=== PATIENT | male | born 1985 | race Two or more races ===

== ENCOUNTER 2020-03-01 14:14 | Emergency (ER) | payer MEDICAID, OTHER ==
[~2020-03-01] VITALS: Ht 180.3 cm; Wt 97.5 kg
[2020-03-01 14:28] VITALS: BP 126/92
[2020-03-01] MEDS ORDERED: ACETAMINOPHEN 325 MG TAB PO ONE ×3 (15:29→15:30)
== END 2020-03-01 16:46 | disposition home or self-care (01) ==
LOC: ER 14:14
DX: B34.9 Viral infection, unspecified (principal); Z20.828 Contact with and (suspected) exposure to other viral communicable diseases
CPT/HCPCS: 71045; 87070; 87804; 87880; 99284; C9803; U0003

== ENCOUNTER 2020-06-22 09:26 | Emergency (ER) | payer MEDICAID, OTHER ==
[~2020-06-22] VITALS: Ht 180.3 cm; Wt 97.5 kg
[2020-06-22 10:47] VITALS: BP 133/79
== END 2020-06-22 12:02 | disposition home or self-care (01) ==
LOC: ER 09:26
DX: M79.672 Pain in left foot (principal); F17.210 Nicotine dependence, cigarettes, uncomplicated; Z88.6 Allergy status to analgesic agent; Z88.8 Allergy status to other drugs, medicaments and biological substances; W22.8XXA Striking against or struck by other objects, initial encounter; Y93.89 Activity, other specified; Y92.89 Other specified places as the place of occurrence of the external cause; Y99.8 Other external cause status
CPT/HCPCS: 73630

== ENCOUNTER 2020-07-14 08:33 | Emergency (ER) | payer OTHER ==
[~2020-07-14] VITALS: Ht 180.3 cm; Wt 97.5 kg
[2020-07-14 11:54] VITALS: BP 138/95
[2020-07-14] MEDS ORDERED: methylPREDNISolone SOD SUCC 125 MG/2 ML VL IM ONE (12:30)
== END 2020-07-14 13:19 | disposition home or self-care (01) ==
LOC: ER 08:33
DX: T63.461A Toxic effect of venom of wasps, accidental (unintentional), initial encounter (principal); F17.210 Nicotine dependence, cigarettes, uncomplicated; Z88.5 Allergy status to narcotic agent; Z88.6 Allergy status to analgesic agent; Z88.8 Allergy status to other drugs, medicaments and biological substances; Y92.89 Other specified places as the place of occurrence of the external cause
CPT/HCPCS: 96372; 99283; J2930

== ENCOUNTER 2024-07-09 14:38 | Emergency (ER) | payer MEDICAID, OTHER ==
[~2024-07-09] VITALS: Ht 180.3 cm; Wt 100.0 kg
[2024-07-09 15:09] LABS: Basophils # (auto) 0.1 10 ^3/uL (0-0.2); Basophils % (auto) 0.9 % (0.0-2.0); Eosinophils # (auto) 0.1 10 ^3/uL (0-0.8); Eosinophils % (auto) 1.3 % (0.0-7.0); Hematocrit 52.4 % (41.0-53.0); Lymphocytes # (auto) 2.2 10 ^3/uL (0.4-5.4); Lymphocytes % (auto) 26.1 % (10.0-50.0); Mean Corpuscular Hemoglobin 32.5 pg (28.0-32.0); Mean Corpuscular Hgb Conc. 34.3 g/dL (32.0-36.0); Mean Corpuscular Volume 94.7 fL (80.0-100.0); Monocytes # (auto) 0.5 10 ^3/uL (0-1.3); Monocytes % (auto) 6.4 % (0.0-12.0); Neutrophils # (auto) 5.5 10 ^3/uL (1.6-8.6); Neutrophils % (auto) 65.3 % (37.0-80.0); Platelet Count (auto) 230 10^3/uL (140-450); Red Blood Cells 5.54 10^6/uL (4.5-5.90); Red Cell Distribution Width 13.6 % (11.8-14.3); White Blood Cell 8.4 10^3/uL (4.4-10.8)
--- NOTE | 2024-07-09 15:14 | DVH ---
CHEST RADIOGRAPH Indication:CP Technique: Single frontal view of the chest was obtained COMPARISON: CHEST XRAY 1 VIEW on DOS: 03/01/20 FINDINGS: Lines and Tubes: None Lungs: Clear Pleura: No effusion. No pneumothorax. Cardiomediastinal contours: Unremarkable Bones: Unremarkable IMPRESSION: No acute disease.
[2024-07-09 15:27] LABS: INR 1.05 (0.9-1.15); Partial Thromboplastin Time 27.2 SEC (24.5-34.5); Prothrombin Time 11.1 sec (9.3-11.8)
[2024-07-09 15:31] LABS: Alanine Aminotransferase 41 U/L (7-40); Albumin 4.9 g/dL (3.2-4.8); Alkaline Phosphatase 48 U/L (46-116); Anion Gap 3 (5-15); Aspartate Aminotransferase 46 U/L (13-40); BUN/Creatinine Ratio 12.5 (10.0-20.0); Blood Urea Nitrogen 12 mg/dL (9-23); Calcium 10.3 mg/dL (8.7-10.4); Carbon Dioxide 32 mmol/L (20-31); Chloride 105 mmol/L (98-107); Glucose 141 mg/dL (74-106); Magnesium 2.1 mg/dL (1.6-2.6); Potassium 3.9 mmol/L (3.5-5.1); Sodium 140 mmol/L (136-145)
[2024-07-09 15:32] LABS: Bilirubin, Total 0.8 mg/dL (0.2-1.0); Total Protein 7.8 g/dL (5.7-8.2)
--- NOTE | 2024-07-09 15:32 | ED.PDOC ---
HPI Comments HPI: HPI: Poor Historian. 38-year-old male presents to the emergency department for episode that started at 1:30 p.m. today of left-sided chest pain radiating to the left upper extremity as numbness and tingling sensation. Patient had associated shortness of breath and dizziness and palpitations with it. Patient states something similar happened five years ago when he was admitted to the hospital at [facility] and subsequently had a heart catheterization which was unremarkable. Patient continues to use tobacco. Patient has been recently on amlodipine for blood pressure. Vitals: Temp:98.0 F Heart rate: 107 RR: 16 BP:119/85 02 sat: 98% on room air PMH: HTN tobacco abuse PSH: denies social history: endorses tobacco use, endorses ETOH use, denies drug use medications: amlodipine allergies: tylenol, hydrocodone, iodine, oxycodone REVIEW OF SYSTEMS: CONSTITUTIONAL: Denies acute: fever, diaphoresis, chills, generalized weakness. HEAD: Denies acute: headache, photophobia Eyes: Denies acute: Double vision, vision loss, eye pain, eye discharge. EARS: Denies acute: tinnitus, hearing loss, ear discharge, ear pain, THROAT: Denies acute: sore throat, swelling, difficulty swallowing , pain with swallowing, change in voice. NECK: Denies acute: neck pain, neck swelling, stiff neck. HEART: Denies acute : LUNGS: Denies acute: wheezing, cough, hemoptysis ABDOMEN: Denies acute: abdominal pain, Nausea, Vomiting, diarrhea, melena , hematemesis, hematochezia SKIN: Denies acute: rash, redness, lesions, itchiness. EXTREMITIES: Denies acute: calf pain, weakness, denies pain in extremity. Denies acute: Low back pain. Neuro: Denies acute: focal neurological deficit, motor or sensory focal neurological deficit, tremors, seizure like activity, confusion, change in mental status, loss of bowel or bladder function, cauda equina like symptoms. : Denies acute: dysuria, hematuria, flank pain, increase in urinary frequency. PSYCH: Denies acute: hallucination, suicidal ideation, homicidal ideation. PHYSICAL EXAM: General: no acute distress, awake and alert. Head: normocephalic, atraumatic. Neck: supple, trachea is midline, no swelling. Throat: Normal phonation. Eyes:, no erythema, no purulent discharge, no proptosis, no icterus. Heart: regular rate, regular rhythm, no significant murmur appreciated. Lungs: no apparent respiratory distress, Able to speak in full sentences. No wheezing, no rhonchi, no crackles. No stridors Clear to auscultation bilaterally. Abdomen: non tender to palpation, non distended, soft, no guarding, no rebound, + bowel sounds. Neuro: Awake, Alert, oriented to name, self, situation, follows commands GCS=15. Speech is normal. Skin: no petechia, no purpura, no cyanosis, non-pale, not jaundice. Lower extremities: --no - Pitting edema no deformity, no focal swelling, no calf TTP. Makes eye contact. moves all four extremities. Face: no apparent facial droop. Chief Complaint: Chest Pain Time Seen by MD: 15:34 Primary Care Provider: UNKNOWN Reviewed Notes: Medications, Allergies Allergies: Coded Allergies: Acetaminophen (Verified Allergy, Unknown, 03/01/20) Hydrocodone (Verified Allergy, Unknown, 03/01/20) Iodine (Verified Allergy, Unknown, 03/01/20) Oxycodone (Verified Allergy, Unknown, 03/01/20) Information Source: Patient Mode of Arrival: Ambulatory Brought in by: self Past Medical History PAST MEDICAL HISTORY: HTN Surgical History: Denies all surgeries Family History Family History: Reviewed,noncontributory to illness Social History Smoker: Cigarettes Alcohol: Denies ETOH Use Drugs: Denies Drug Use Lives In: Home Was a procedure done? Was a procedure done?: No CP Differential Dx Differential Diagnosis: N/A Differential Diagnosis: Other (Ddx include but not limitied to gastritis, musculoskeletal pain, radiculopathy, atypical chest pain, dissection, aneurysm, ACS, unstable angina, hiatal hernia, GERD, anxiety, costochondritis, PE, pneumothroax, neoplasm, cardiac ischemia, drug abuse, anemia.) X-Ray, Labs, Meds, VS Vital Signs Date Time Temp Pulse Resp B/P (MAP) Pulse Ox O2 Delivery O2 Flow Rate FiO2 07/09/24 17:45 93 07/09/24 17:23 115/64 07/09/24 16:24 98.5 101 20 121/76 (91) 97 98.5 07/09/24 16:24 101 20 97 Room Air 07/09/24 16:23 121/76 07/09/24 16:06 94 07/09/24 15:04 98.0 107 16 119/85 (96) 98 07/09/24 14:40 108 Lab Test 07/09/24 17:38 07/09/24 15:44 07/09/24 14:44 Range/Units Troponin I High Sensitivity < 3 L < 3 L < 3 L </=54 ng/L White Blood Count 8.4 4.4-10.8 10^3/uL Red Blood Count 5.54 4.5-5.90 10^6/uL Hemoglobin 18.0 H 13.5-17.5 g/dL Hematocrit 52.4 41.0-53.0 % Mean Corpuscular Volume 94.7 80.0-100.0 fL Mean Corpuscular Hemoglobin 32.5 H 28.0-32.0 pg Mean Corpuscular Hemoglobin Concent 34.3 32.0-36.0 g/dL Red Cell Distribution Width 13.6 11.8-14.3 % Platelet Count 230 140-450 10^3/uL Mean Platelet Volume 9.1 6.9-10.8 fL Neutrophils (%) (Auto) 65.3 37.0-80.0 % Lymphocytes (%) (Auto) 26.1 10.0-50.0 % Monocytes (%) (Auto) 6.4 0.0-12.0 % Eosinophils (%) (Auto) 1.3 0.0-7.0 % Basophils (%) (Auto) 0.9 0.0-2.0 % Neutrophils # (Auto) 5.5 1.6-8.6 10 ^3/uL Lymphocytes # (Auto) 2.2 0.4-5.4 10 ^3/uL Monocytes # (Auto) 0.5 0-1.3 10 ^3/uL Eosinophils # (Auto) 0.1 0-0.8 10 ^3/uL Basophils # (Auto) 0.1 0-0.2 10 ^3/uL Nucleated Red Blood Cells 0.0 % Prothrombin Time 11.1 9.3-11.8 sec Prothrombin Time INR 1.05 0.9-1.15 Activated Partial Thromboplast Time 27.2 24.5-34.5 SEC Sodium Level 140 136-145 mmol/L Potassium Level 3.9 3.5-5.1 mmol/L Chloride Level 105 98-107 mmol/L Carbon Dioxide Level 32 H 20-31 mmol/L Anion Gap 3 L 5-15 Blood Urea Nitrogen 12 9-23 mg/dL Creatinine 0.96 0.700-1.30 mg/dL Glomerular Filtration Rate Calc 103 >90 mL/min BUN/Creatinine Ratio 12.5 10.0-20.0 Serum Glucose 141 H 74-106 mg/dL Calcium Level 10.3 8.7-10.4 mg/dL Magnesium Level 2.1 1.6-2.6 mg/dL Total Bilirubin 0.8 0.2-1.0 mg/dL Aspartate Amino Transferase (AST) 46 H 13-40 U/L Alanine Aminotransferase (ALT) 41 H 7-40 U/L Alkaline Phosphatase 48 46-116 U/L B-Type Natriuretic Peptide 2.27 0-100 pg/mL Total Protein 7.8 5.7-8.2 g/dL Albumin 4.9 H 3.2-4.8 g/dL Current Medications Medications (Trade) Dose Ordered Sig/Chau Route Start Time Stop Time Status Last Admin Aspirin 325 mg ONCE ONCE PO 07/09/24 15:45 07/09/24 15:46 DC 07/09/24 16:22 Nitroglycerin (Ntrostat Sublingual) 0.4 mg ONCE ONCE SL 07/09/24 15:45 07/09/24 15:46 DC 07/09/24 16:23 [place] [id number] Ph: [phone] DIAGNOSTIC IMAGING Diagnostic Imaging Report : [id number] Signed PATIENT: TIMMY NOYOLA ACCT: [id number] UNIT: [id number] : 1985 LOC: ER ROOM / BED: / AGE / SEX: 38 / M ADM STATUS: REG ER SERVICE [id number] ORDERING PHYSICIAN: SUDHA GROVES MD PROCEDURE(s): CXRP - CHEST PORTABLE REASON: CP ORDER NUMBER(s): [id number], ACCESSION NUMBER(s): [id number] CHEST RADIOGRAPH Indication:CP Technique: Single frontal view of the chest was obtained COMPARISON: CHEST XRAY 1 VIEW on DOS: 03/01/20 FINDINGS: Lines and Tubes: None Lungs: Clear Pleura: No effusion. No pneumothorax. Cardiomediastinal contours: Unremarkable Bones: Unremarkable IMPRESSION: No acute disease. ATED BY: NADEEM BURNETT MD DICTATED DATE/TIME: 07/09/241511 SIGNED BY: NADEEM BURNETT MD SIGNED DATE/TIME: 07/09/241511 CC: Time of 1ST Reevaluation: 20:24 Reevaluation 1ST: Improved Patient Education/Counseling: Diagnosis, Treatment Family Education/Counseling: No Family Present Comments Patient presented with the above HPI.---chest pain---workup was initiated. patient was found with the above mentioned diagnosis. Patient was given: Aspirin and nitroglycerin sublingual Patient ED course and VS have been stabilized. Patient has been reassessed in the ED and remained in a stable condition. Pertinent incidental findings were discussed with the patient and/or family. Patient/family voices understanding and is agreeable with plan. Patient has been observed in the ED adequate length of time to insure improvement/stability. patient was admitted to the medicine team for further evaluation and treatment of their presentation. Later I was informed that the patient eloped/left AMA All the reports of any imaging studies that were ordered by myself were reviewed by myself. Departure 1 Departure Time of Disposition: 15:35 Impression: Primary Impression: Chest pain Additional Impression: T wave inversion in EKG Disposition: ADMITTED INPATIENT Admit to: [facility] Condition: Guarded Discharged With: Self Critical Care Note Critical Care Time?: No Heart Score Heart Score: Heart Score Response (Comments) Value History Slightly Suspicious [address]-Deviation 2 Age <45 0 Risk Factors 1 or 2 risk factors 1 Troponin Normal limit 0 Total 3 I personally scribed for LATONIA WRIGHT DO ([email or web address]) on 07/09/24 at 15:32. Electronically submitted by Liseth Briggs ([email or web address]). I personally scribed for LATONIA WRIGHT DO ([email or web address]) on 07/09/24 at 15:35. Electronically submitted by Liseth Briggs ([email or web address]). I personally scribed for LATONIA WRIGHT DO ([email or web address]) on 07/09/24 at 16:01. Electronically submitted by Liseth Briggs ([facility]). I personally scribed for LATONIA WRIGHT DO ([facility]) on 07/09/24 at 16:13. Electronically submitted by Liseth Briggs ([facility]). I personally scribed for LATONIA WRIGHT DO ([facility]) on 07/09/24 at 16:22. Electronically submitted by Liseth Briggs ([facility]). LATONIA WRIGHT DO Jul 09, 2024 15:32
--- NOTE | 2024-07-09 16:08 | ECG ---
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
[2024-07-09] MEDS: ASPirin 325 MG TAB PO ONE (16:22)
[2024-07-09] MEDS: NITROGLYCERIN 0.4 MG SL TAB SL ONE (16:23)
[2024-07-09 16:24] VITALS: BP 121/76; RESP 20; TEMP 98.5; O2SAT 97
[2024-07-09 17:45] VITALS: PULSE 93
--- NOTE | 2024-07-09 17:46 | ECG ---
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
--- NOTE | 2024-07-10 08:44 | ECG ---
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
== END 2024-07-09 18:55 | disposition left against medical advice (07) ==
LOC: ER 14:44
DX: R07.89 Other chest pain (principal); R94.31 Abnormal electrocardiogram [ECG] [EKG]
CPT/HCPCS: 36415; 71045; 80053; 83735; 83880; 84484; 85025; 85610; 85730; 93005